=== PATIENT | male | born 1995 | race Caucasian/White ===

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

== ENCOUNTER 2021-03-14 17:41 | Inpatient (IN) ==
[2021-03-14 19:15] LABS: Basophils % 0.4 %; Eosinophils # 0.7 K/mcL (0.0-0.6); Eosinophils % 6.8 %; Hematocrit 43.5 % (37.5-50.1); Hemoglobin 13.8 g/dL (12.9-16.9); Immature Granulocytes % 0.6 % (0-4); Lymphocytes # 2.9 K/mcL (0.6-4.6); Lymphocytes % 28.8 %; Mean Corpuscular HGB Conc 31.7 g/dL (31.6-35.5); Mean Corpuscular Hemoglobin 28.5 pg (28.0-33.3); Mean Corpuscular Volume 89.7 fL (83.0-100.0); Mean Platelet Volume 9.4 fL (9.4-12.4); Monocytes # 0.7 K/mcL (0.0-1.3); Monocytes % 6.6 %; Neutrophils # 5.6 K/mcL (1.6-8.9); Platelet Count 270 K/mcL (140-400); Red Blood Count 4.85 M/mcL (4.19-5.50); Segmented Neutrophils % 56.8 %; White Blood Count 9.9 K/mcL (4.3-11.1)
[2021-03-14 19:39] LABS: Acetaminophen < 10 mcg/mL (10-20); BUN/Creatinine Ratio 18 (6-26); Blood Urea Nitrogen 16 mg/dL (6-20); Carbon Dioxide 27 mEq/L (23-29); Chloride 104 mEq/L (98-107); Ethanol < 10 mg/dL (Less than 10); Glucose 70 mg/dL (70-105); Osmolality,Calculated 284 (280-300); Potassium 3.8 mEq/L (3.5-5.1); Salicylate < 2.5 mg/dL (15.0-30.0); Sodium 137 mEq/L (136-145); eGFR For African Americans > 60 (> 60); eGFR For Non-African Americans > 60 (> 60)
[2021-03-14 20:05] LABS: Bilirubin,Urine Negative (Negative); Blood,Urine Negative (Negative); Clarity,Urine Clear (Clear); Color,Urine Colorless (Yellow); Glucose,Urine (UA) Normal (Normal); Ketones,Urine Negative (Negative); Leukocyte Esterase,Urine Negative (Negative); Nitrite,Urine Negative (Negative); Protein,Urine Negative (Neg-Trace); Specific Gravity,Urine 1.016 (1.010-1.025); Urobilinogen,Urine Normal (Normal)
[2021-03-14 20:13] LABS: Amphetamine Screen,Urine Negative ng/mL (Cutoff=1000); Barbiturate Screen,Urine Negative ng/mL (Cutoff=200); Benzodiazepines Screen,Urine Negative ng/mL (Cutoff=200); Cannabinoid Screen,Urine Positive ng/mL (Cutoff = 50); Cocaine Screen,Urine Negative ng/mL (Cutoff= 300); Opiate Screen,Urine Negative ng/mL (Cutoff=300); Phencyclidine Screen,Urine Negative ng/mL (Cutoff=25)
[2021-03-14 21:26] LABS: Influenza A PCR Negative (Negative); Influenza B PCR Negative (Negative); Resp. Syncytial Virus PCR Negative (Negative)
[2021-03-14 21:30] LABS: SARS-CoV-2 by PCR (In House) Negative (Negative)
[2021-03-15] MEDS ORDERED: MOM Conc 10 ML UD.LIQ PO PRN (19:57)
[2021-03-15] MEDS ORDERED: Mag Hydrox/Al Hydrox/Simeth 30 ML UDC PO PRN (19:57)
[2021-03-15] MEDS ORDERED: Acetaminophen 325 MG TABLET PO PRN (19:57)
[2021-03-15] MEDS ORDERED: *HR* LORazepam 2 MG/ML VIAL IM PRN (19:57)
[2021-03-15] MEDS ORDERED: haloperidoL 5 MG TABLET PO PRN (19:57)
[2021-03-15] MEDS ORDERED: Haloperidol Lactate 5 MG/ML VIAL IM PRN (19:57)
[2021-03-15] MEDS ORDERED: Ibuprofen 400 MG TABLET PO PRN (19:57)
[2021-03-15] MEDS ORDERED: *HR* LORazepam 1 MG TABLET PO PRN (19:57)
[2021-03-15] MEDS: Venlafaxine XR (24 HR) 150 MG CAP.ER.24H PO SCH (22:18)
[2021-03-15] MEDS: traZODone 50 MG TABLET PO PRN (22:18)
[2021-03-15] MEDS: hydrOXYzine pamoate 25 MG CAPSULE PO PRN (23:32)
[2021-03-16] MEDS: Venlafaxine XR (24 HR) 150 MG CAP.ER.24H PO SCH (10:02)
[2021-03-16] MEDS: Nicotine 2 MG GUM BC SCH ×3 (12:25→20:18)
[2021-03-16] MEDS: Nicotine 2 MG GUM BC PRN (19:57)
[2021-03-16] MEDS: hydrOXYzine pamoate 25 MG CAPSULE PO PRN (21:57)
[2021-03-16] MEDS: traZODone 50 MG TABLET PO PRN (21:57)
[2021-03-17] MEDS: Venlafaxine XR (24 HR) 150 MG CAP.ER.24H PO SCH (10:03)
[2021-03-17 10:06] VITALS: BP 124/70; PULSE 62; TEMP 97.9; O2SAT 99
[2021-03-17] MEDS: hydrOXYzine pamoate 25 MG CAPSULE PO PRN (11:05)
[2021-03-17] MEDS: Nicotine 2 MG GUM BC PRN (11:15)
== END 2021-03-17 12:10 | disposition home or self-care (01) | DRG 753 ==
LOC: EMEROOARM 17:41 → 1ANU 03-15 15:41
PROVIDERS: ADMIT Psychiatry & Neurology Psychiatry; ATTEND Psychiatry & Neurology Psychiatry